=== PATIENT | female | born 1960 | race Caucasian/White ===

== ENCOUNTER 2019-03-13 12:25 | Emergency (ER) | payer OTHER ==
[2019-03-13 12:32] VITALS: BP 124/79; PULSE 80; TEMP 97.5; BMI 37.7
--- NOTE | 2019-03-13 12:32 | PDOC ---
Rapid Medical Evaluation Time Seen by Provider: 03/13/19 12:29 Medical Evaluation: Allergies Allergy/AdvReac Type Severity Reaction Status Date / Time No Known Allergies Allergy Verified 02/28/12 11:13 03/13/19 12:31 CC: headache with blurry vision PE: No focal deficits. Lauraatti(-) Orders: [facility] The patient will proceed to the ER for continued Evaluation. Discharge Disposition - Diagnosis Headache - Referrals - Patient Instructions - Post Discharge Activity
--- NOTE | 2019-03-13 12:45 | PDOC ---
History of Present Illness - General Chief Complaint: Headache Stated Complaint: SENT BY DR WASHINGTON/HEADACHE Time Seen by Provider: 03/13/19 12:29 - History of Present Illness Initial Comments: The pt is a 58F w/ a history of a-fib (eliquis) and HTN who presents for evaluation of 10 days of headache. The RAHMAN is R occipital aching/throbbing, radiates to her neck, is waxing/waning, worse with extension, mildly alleviated by Ibuprofen, and is associated with intermittent blurry vision. She denies blurry vision today and has not taken anything for her pain today. She was seen in the PCP's office who sent her over for evaluation and concern of ICH. The pt denies N/V, falls/trauma, dizziness, change in balance, changes in hearing, or changes in sensation/strength. 03/13/19 13:03 Past History - Past Medical History Allergies/Adverse Reactions: Allergies Allergy/AdvReac Type Severity Reaction Status Date / Time No Known Allergies Allergy Verified 03/13/19 12:32 Home Medications: Ambulatory Orders Diazepam [Valium] 5 mg PO HS PRN 02/28/12 Apixaban [Eliquis -] 5 mg PO BID 03/13/19 Bisoprolol Fumarate 5 mg PO ASDIR 03/13/19 Furosemide [Lasix -] 40 mg PO DAILY 03/13/19 Losartan/Hydrochlorothiazide [Losartan-Hctz 50-12.5 mg Tab] 1 each PO DAILY 09/24 Anemia: No Asthma: No Cancer: No Cardiac Disorders: Yes ("Rapid Heart Rate" 1 yr ago-work-up negative) CVA: No COPD: No CHF: No Dementia: No Diabetes: No GI Disorders: No Disorders: No HTN: Yes Hypercholesterolemia: No Liver Disease: No Seizures: No Thyroid Disease: No - Psycho Social/Smoking Cessation Hx Smoking History: Never smoked Hx Alcohol Use: No Drug/Substance Use Hx: No Substance Use Type: None Hx Substance Use Treatment: No Review of Systems - Review of Systems Able to Perform ROS?: Yes Comments:: GENERAL/CONSTITUTIONAL: No fever or chills. No weakness HEAD, EYES, EARS, NOSE AND THROAT: No change in hearing. No sore throat CARDIOVASCULAR: No chest pain or shortness of breath RESPIRATORY: Denies cough, hemoptysis GASTROINTESTINAL: No nausea, vomiting, diarrhea or constipation GENITOURINARY: No dysuria, frequency, or change in urination MUSCULOSKELETAL: No joint or muscle swelling or pain. No neck or back pain SKIN: No rash NEUROLOGIC: No vertigo, loss of consciousness, or change in strength/sensation ENDOCRINE: No increased thirst. No abnormal weight change HEMATOLOGIC/LYMPHATIC: No anemia, easy bleeding, or history of blood clots; + eliquis ALLERGIC/IMMUNOLOGIC: No hives or skin allergy 03/13/19 12:45 Is the patient limited [place] proficient: No *Physical Exam - Vital Signs Last Vital Signs Temp Pulse Resp BP Pulse Ox 97.5 F L 80 18 124/79 99 03/13/19 12:29 03/13/19 12:29 03/13/19 12:29 03/13/19 12:29 03/13/19 12:29 - Physical Exam Comments: GENERAL: Awake, alert, and oriented to person/place/time, in no acute distress HEAD: No signs of trauma, normocephalic, atraumatic EYES: PERRLA, EOMI, sclera anicteric, conjunctiva clear ENT: Hearing grossly normal, nares patent, oropharynx clear without exudates. Moist mucosa LUNGS: No distress, speaks in full sentences, clear to auscultation bilaterally HEART: Regular rate with irregularly irregular rhythm, normal S1 and S2, no murmurs appreciated, peripheral pulses normal and equal bilaterally ABDOMEN: Soft, protuberant, nontender, normoactive bowel sounds. No guarding, no rebound EXTREMITIES: Normal inspection, Normal range of motion, no edema. No clubbing or cyanosis NEUROLOGICAL: Cranial nerves II through XII grossly intact. Normal speech, normal gait, no focal sensorimotor deficits SKIN: Warm, Dry, normal turgor, no rashes or lesions noted 03/13/19 12:45 ED Treatment Course - LABORATORY CBC & Chemistry Diagram: 03/13/19 13:10 03/13/19 13:10 - RADIOLOGY Radiograph Interpretation: CT/HEAD CT WITHOUT CONTRAST There is mild volume loss. The ventricles and basal cisterns appear unremarkable. No mass lesion, acute infarct or intracranial hemorrhage are identified. There is no shift of the midline structures. Minimal deviation of the nasal septum towards the left. The mastoid air cells are well aerated and the calvarium is intact IMPRESSION: Minimal volume loss without CT evidence of acute intracranial pathology correlate clinically to determine further evaluation and follow-up 03/13/19 14:24 Medical Decision Making - Medical Decision Making The pt is a 58F w/ a history of a-fib (eliquis) and HTN who presents for evaluation of 10 days of R occipital headache w/ associated intermittent blurry vision. ED Course Labs sent CT head IVF, Tylenol, Reglan, and Benadryl for symptomatic relief 03/13/19 13:35 CT head w/o acute pathology No leukocytosis No anemia Lytes wnl No JOSÉ MANUEL LFTs wnl Trop I neg 03/13/19 14:24 Pt feels improved at this time Plan for D/C w/ PCP f/u Discharge instructions and return precautions given Patient in agreement and verbalized understanding Dispo: Home 03/13/19 14:58 Discharge - Discharge Information Problems reviewed: Yes Clinical Impression/Diagnosis: Headache Qualifiers: Headache type: unspecified Headache chronicity pattern: unspecified pattern Intractability: not intractable Qualified Code(s): R51 - Headache Condition: Stable Disposition: HOME - Admission No - Follow up/Referral Referrals: Ankita Washington MD [Primary Care Provider] - Judi Costa MD [Staff Physician] - - Patient Discharge Instructions Patient Printed Discharge Instructions: Tension Headache Additional Instructions: You were seen in the Emergency Department for evaluation of headache. Your labs and imaging were unremarkable. Review the handout provided at discharge. Follow up with your primary care physician within the next week. For pain you may take Tylenol 650mg every 6 hours and Ibuprofen 600mg every 6-8 hours, alternating them each time. Return to the Emergency Department if you develop fevers, chest pain, trouble breathing, worsening pain, change in sensation, worsening symptoms, or any new/ concerning symptoms. - Post Discharge Activity
[2019-03-13] MEDS ORDERED: METOCLOPRAMIDE HCL INJECTION 10 MG/2 ML VIAL IVPB ONE (13:02)
[2019-03-13] MEDS ORDERED: ACETAMINOPHEN 325 MG TABLET (FP) PO ONE (13:02)
[2019-03-13] MEDS ORDERED: SODIUM CHLORIDE 0.9% 500 ML INFUS.BAG IV ONE (13:09)
[2019-03-13 13:19] LABS: BASO % 0.6 % (0-2.0); HEMATOCRIT 43.2 % (32.4-45.2); HEMOGLOBIN 14.7 GM/dL (10.7-15.3); LYMPH % 33.2 % (8-40); MCH 29.9 pg (25.7-33.7); MCHC 34.1 g/dl (32.0-36.0); MEAN CELL VOLUME 87.8 fl (80-96); MEAN PLT VOLUME 10.6 fl (7.5-11.1); MONO % 8.4 % (3.8-10.2); NEUT % 55.8 % (42.8-82.8); PLATELET COUNT 208 K/MM3 (134-434); RBC 4.92 M/mm3 (3.60-5.2); RDW 13.1 % (11.6-15.6); WHITE BLOOD COUNT 6.1 K/mm3 (4.0-10.0)
[2019-03-13] MEDS ORDERED: METOCLOPRAMIDE HCL INJECTION 10 MG/2 ML VIAL ONE (13:30)
[2019-03-13 13:32] LABS: INR 1.32 (0.83-1.09); PROTHROMBIN TIME (PATIENT) 15.6 SEC (9.7-13.0)
[2019-03-13 13:45] LABS: BILIRUBIN,TOTAL 1.4 mg/dL (0.2-1); BLOOD UREA NITROGEN 16.8 mg/dL (7-18); CALCIUM 9.2 mg/dL (8.5-10.1); CREATININE 0.7 mg/dL (0.55-1.3); POTASSIUM 4.1 mmol/L (3.5-5.1); TOT PROT 7.8 g/dl (6.4-8.2)
--- NOTE | 2019-03-13 14:03 | PDOC ---
Attending Attestation - Resident Resident Name: OliviashwetaBob - ED Attending Attestation I have performed the following: I have examined & evaluated the patient, The case was reviewed & discussed with the resident, I agree w/resident's findings & plan, Exceptions are as noted - HPI HPI: 03/13/19 15:38 58 years old with past medical history significant for A. fib on Eliquis hypertension presents with 10-day history of headache headache is right occipital throbbing waxes and wanes was not exertional not maximal in onset sent by her PCP for a CAT scan to rule out intracranial pathology - Physicial Exam PE: 03/13/19 15:38 Vitals: Triage Vital signs reviewed General Appearance: No acute distress, well nourished well developed, Head: Atraumatic, Eyes: Pupils equal reactive round, extraocular movement intact Neck: Supple; no Nucal rigidity Chest Wall: Nontender Cardiac: Regular rate and rhythym, no murmurs, no rubs, no gallops, Lungs: Clear to auscultation bilateral, good air movement bilaterally, Abdomen: Soft, non distended, normal bowel sounds, non tender to palpation Extremities: Full range of motion to all extremities, no cyanosis, clubbing, or edema Skin: Warm and dry, no rashes or lesions, no rash, no petechiae Neuro: Strength intact to all extremities, sensation intact to all extremities, gait normal Psych: Normal mood, normal affect - Medical Decision Making 03/13/19 15:38 Well-appearing no apparent distress presents to the ED with 10-day history of headache CT negative patient feels better after migraine meds will arrange for patient to follow-up with neurology as outpatient Findings, need for follow-up and strict return instructions discussed with patient. Heart Score/ECG Review - ECG Impressions Comment:: 03/13/19 15:40 EKG performed at 1320 demonstrates A. fib at [address] elevations or T wave inversions Interpreted by me
[2019-03-13] MEDS ORDERED: ACETAMINOPHEN 325 MG TABLET (FP) ONE (14:28)
--- NOTE | 2019-03-13 15:00 | EKG ---
Test Reason : Blood Pressure : / mmHG Vent. Rate : 091 BPM Atrial Rate : 241 BPM P-R Int : 000 ms QRS Dur : 068 ms QT Int : 356 ms P-R-T Axes : 000 038 013 degrees QTc Int : 437 ms ATRIAL FIBRILLATION ABNORMAL ECG NO PREVIOUS ECGS AVAILABLE Confirmed by MD Barrientos Daniel ([id number]) on 03/13/2019 2:59:44 PM Referred By: Confirmed By:Jarad Barrientos MD
[2019-03-13] MEDS ORDERED: KETOROLAC TROMETHAMINE 15 MG/ML VIAL ONE (15:16)
[2019-03-13] MEDS ORDERED: KETOROLAC TROMETHAMINE 15 MG/ML VIAL IVPUSH ONE (15:17)
== END 2019-03-13 15:58 | disposition home or self-care (01) ==
LOC: JER 12:25
PROC: 3E033GC Introduction of Other Therapeutic Substance into Peripheral Vein, Percutaneous Approach (ICD-10-PCS; principal; 2019-03-13)
PROC: 3E033GC Introduction of Other Therapeutic Substance into Peripheral Vein, Percutaneous Approach (ICD-10-PCS; 2019-03-13)
PROC: 3E0333Z Introduction of Anti-inflammatory into Peripheral Vein, Percutaneous Approach (ICD-10-PCS; 2019-03-13)
DX: R51 Headache (principal); I10 Essential (primary) hypertension; I48.91 Unspecified atrial fibrillation; Z79.01 Long term (current) use of anticoagulants
CPT/HCPCS: 36415; 70450-TC; 80053; 82550; 84484; 85025; 85610; 93005; 93010; 96374; 96375; 99283-25

== ENCOUNTER 2023-06-29 17:45 | Observation (INO) | payer OTHER ==
[2023-06-29 18:09] VITALS: BMI 36.0
[2023-06-29 18:56] LABS: BASO % 0.6 % (0-2.0); EOS % 2.7 % (0-4.5); HEMOGLOBIN 13.9 GM/dL (10.7-15.3); LYMPH % 31.7 % (8-40); MCH 29.9 pg (25.7-33.7); MCHC 33.8 g/dl (32.0-36.0); MEAN CELL VOLUME 88.4 fl (80-96); MEAN PLT VOLUME 10.6 fl (7.5-11.1); MONO % 9.5 % (3.8-10.2); NEUT % 55.5 % (42.8-82.8); PLATELET COUNT 198 10^3/uL (134-434); RBC 4.63 M/mm3 (3.60-5.2); RDW 13.8 % (11.6-15.6); WHITE BLOOD COUNT 6.6 K/mm3 (4.0-10.0)
[2023-06-29 19:02] LABS: INR 1.27 (0.83-1.09); PROTHROMBIN TIME (PATIENT) 14.7 SEC (9.7-13.0)
[2023-06-29 19:05] LABS: ACTIVATED PTT 36.8 SECONDS (25.2-36.5)
[2023-06-29 19:25] LABS: POTASSIUM 3.9 mmol/L (3.5-5.1)
[2023-06-29 19:28] LABS: ALBUMIN 3.8 g/dl (3.4-5.0); BLOOD UREA NITROGEN 14.3 mg/dL (7-18); CALCIUM 9.3 mg/dL (8.5-10.1); MAGNESIUM 2.1 mg/dL (1.8-2.4)
[2023-06-29] MEDS ORDERED: NITROGLYCERIN 2% OINTMENT - 1GM PACKET TD ONE ×2 (19:28→19:29)
[2023-06-29 19:31] LABS: CREATININE 0.8 mg/dL (0.55-1.3); PHOSPHOROUS 3.2 mg/dL (2.5-4.9)
[2023-06-29 19:33] LABS: BILIRUBIN,TOTAL 2.4 mg/dL (0.2-1); TOT PROT 6.9 g/dl (6.4-8.2)
[2023-06-29] MEDS: NITROGLYCERIN 2% OINTMENT - 1GM PACKET TD ONE (19:34)
[2023-06-29 19:36] LABS: N-TERMINAL BNP 615.6 pg/ml (5-125)
[2023-06-29 20:06] LABS: PH,URINE 5.5 (5.0-8.0); URINE APPEARANCE CLEAR; URINE BILIRUBIN NEGATIVE (NEGATIVE); URINE COLOR YELLOW; URINE GLUCOSE (UA) NEGATIVE (NEGATIVE); URINE KETONE NEGATIVE (NEGATIVE); URINE LEUK ESTERASE NEGATIVE (NEGATIVE); URINE NITRITE NEGATIVE (NEGATIVE); URINE PROTEIN NEGATIVE (NEGATIVE)
[2023-06-29] MEDS ORDERED: METOPROLOL TARTRATE 25 MG TABLET (FP) ONE (20:41)
[2023-06-29] MEDS ORDERED: DOCUSATE SODIUM 100 MG CAPSULE (FP) PO PRN (20:45)
[2023-06-29] MEDS: METOPROLOL TARTRATE 25 MG TABLET (FP) PO ONE (20:57)
[2023-06-29] MEDS ORDERED: ACETAMINOPHEN INJECTION 100 ML IVPB ONE (21:32)
[2023-06-29] MEDS: ACETAMINOPHEN 1000 MG/100 ML BAG IVPB PRN (21:38)
[2023-06-30] MEDS: SODIUM CHLORIDE 500 ML IV STA (00:39)
[2023-06-30] MEDS: APIXABAN 5 MG TABLET PO SCH (02:02)
[2023-06-30 06:47] LABS: BASO % 0.4 % (0-2.0); EOS % 2.7 % (0-4.5); HEMATOCRIT 38.6 % (32.4-45.2); LYMPH % 38.7 % (8-40); MCH 30.1 pg (25.7-33.7); MCHC 33.8 g/dl (32.0-36.0); MEAN PLT VOLUME 10.7 fl (7.5-11.1); MONO % 10.4 % (3.8-10.2); NEUT % 47.8 % (42.8-82.8); PLATELET COUNT 155 10^3/uL (134-434); RBC 4.33 M/mm3 (3.60-5.2); RDW 13.9 % (11.6-15.6); WHITE BLOOD COUNT 5.4 K/mm3 (4.0-10.0)
[2023-06-30 07:04] LABS: POTASSIUM 3.9 mmol/L (3.5-5.1)
[2023-06-30 07:10] LABS: CALCIUM 8.3 mg/dL (8.5-10.1)
[2023-06-30 07:11] LABS: ALBUMIN 3.2 g/dl (3.4-5.0); BLOOD UREA NITROGEN 16.8 mg/dL (7-18)
[2023-06-30 07:14] LABS: CREATININE 0.6 mg/dL (0.55-1.3)
[2023-06-30 07:15] LABS: TOT PROT 6.2 g/dl (6.4-8.2)
[2023-06-30 07:16] LABS: BILIRUBIN,TOTAL 2.1 mg/dL (0.2-1)
[2023-06-30] MEDS: METOPROLOL TARTRATE 25 MG TABLET (FP) PO SCH (10:55)
[2023-07-01] MEDS: ACETAMINOPHEN 325 MG TABLET (FP) PO PRN (13:02)
[2023-07-01] MEDS ORDERED: REGADENOSON 0.4 MG/5 ML PRE-FILLED SYRINGE IVPUSH ONE (13:54)
[2023-07-01] MEDS: REGADENOSON 0.4 MG/5 ML PRE-FILLED SYRINGE IVPUSH ONE (14:48)
[2023-07-01] MEDS: AMINOPHYLLINE 250 MG/10 ML VIAL IVPUSH ONE (14:48)
[2023-07-02] MEDS: METOPROLOL TARTRATE 50 MG TABLET (FP) PO SCH (21:17)
[2023-07-03 08:17] LABS: POTASSIUM 4.4 mmol/L (3.5-5.1)
[2023-07-03 08:18] LABS: BASO % 0.7 % (0-2.0); EOS % 2.4 % (0-4.5); HEMATOCRIT 40.7 % (32.4-45.2); HEMOGLOBIN 13.7 GM/dL (10.7-15.3); LYMPH % 33.2 % (8-40); MCH 29.9 pg (25.7-33.7); MCHC 33.7 g/dl (32.0-36.0); MEAN CELL VOLUME 88.9 fl (80-96); MEAN PLT VOLUME 10.6 fl (7.5-11.1); MONO % 9.4 % (3.8-10.2); NEUT % 54.3 % (42.8-82.8); PLATELET COUNT 177 10^3/uL (134-434); RBC 4.57 M/mm3 (3.60-5.2); WHITE BLOOD COUNT 5.8 K/mm3 (4.0-10.0)
[2023-07-03 08:21] LABS: ALBUMIN 3.4 g/dl (3.4-5.0); BLOOD UREA NITROGEN 11.2 mg/dL (7-18); CALCIUM 8.5 mg/dL (8.5-10.1)
[2023-07-03 08:25] LABS: CREATININE 0.5 mg/dL (0.55-1.3)
[2023-07-03 08:26] LABS: BILIRUBIN,TOTAL 2.4 mg/dL (0.2-1); TOT PROT 6.7 g/dl (6.4-8.2)
[2023-07-03 10:40] VITALS: BP 101/62; PULSE 96; RESP 18; TEMP 98.4
[2023-07-04] MEDS ORDERED: LEVOTHYROXINE NA 50 MCG TABLET (FP) PO SCH (07:00)
== END 2023-07-03 17:38 | disposition home or self-care (01) ==
LOC: JER 17:45 → JERBED 20:06 → J4W 23:11
PROVIDERS: ADMIT Internal Medicine; ATTEND Family Medicine
PROC: 3E033NZ Introduction of Analgesics, Hypnotics, Sedatives into Peripheral Vein, Percutaneous Approach (ICD-10-PCS; principal; 2023-06-29)
PROC: 3E033GC Introduction of Other Therapeutic Substance into Peripheral Vein, Percutaneous Approach (ICD-10-PCS; 2023-06-29)
PROC: 3E0337Z Introduction of Electrolytic and Water Balance Substance into Peripheral Vein, Percutaneous Approach (ICD-10-PCS; 2023-06-29)
DX: I48.91 Unspecified atrial fibrillation (principal); I10 Essential (primary) hypertension; Z79.01 Long term (current) use of anticoagulants; M19.90 Unspecified osteoarthritis, unspecified site; E03.9 Hypothyroidism, unspecified; I87.2 Venous insufficiency (chronic) (peripheral); Z86.73 Personal history of transient ischemic attack (TIA), and cerebral infarction without residual deficits; E80.6 Other disorders of bilirubin metabolism; E66.9 Obesity, unspecified
CPT/HCPCS: 0241U-QW; 36415; 71045-TC-FY; 73560-TC-LT-FY; 73560-TC-RT-FY; 76705-TC; 78452-TC; 80053; 80061; 81003; 82248; 83735; 83880; 84100; 84443; 84484; 85025; 85610; 85730; 86704; 86803; 86850; 86900; 86901; 87086; 87340; 87517; 93005; 93010; 93017; 93306-TC; 93880-TC; 93970-TC; 96361; 96374; 96375; 99285-25; A9502; G0378; J0131; J2785